=== PATIENT | female | born 1960 | race Caucasian/White ===

== ENCOUNTER → 2016-07-03 | Outpatient (CLI) | payer BC ==
[2016-07-03 11:47] LABS: HEMOGLOBIN 14.1 gm/dl (12.3-15.3); RED BLOOD COUNT 4.97 M/UL (4.00-5.10); WHITE BLOOD COUNT 7.4 K/UL (4.5-11.0)
[2016-07-03 12:11] LABS: BUN/CREATININE RATIO 13 (0-10)
== END ==
LOC: LAB 10:47
PROVIDERS: Internal Medicine
DX: E66.9 Obesity, unspecified (principal); M25.40 Effusion, unspecified joint; M25.50 Pain in unspecified joint; Z86.010 Personal history of colon polyps
CPT/HCPCS: 36415; 80048; 80061; 83001; 83002; 84439; 84443; 85025; 86376

== ENCOUNTER → 2016-07-21 | Outpatient (CLI) | payer BC | LOC: KOH-I 16:01 | DX: M25.562 Pain in left knee (principal); M25.561 Pain in right knee; M25.462 Effusion, left knee; M25.461 Effusion, right knee | CPT/HCPCS: 73564 ==

== ENCOUNTER → 2021-11-05 | Outpatient (CLI) | payer BC, OTHER ==
[~2021-11-05] MED LIST: HYDROXYZINE HCL25 MG PO; LISINOPRIL-HCT1 EACH PO; TYLENOL EXTRA500 MG PO
[2021-11-05 11:08] LABS: HEMOGLOBIN 12.9 gm/dl (12.3-15.3); RED BLOOD COUNT 4.71 M/UL (4.00-5.10); WHITE BLOOD COUNT 8.8 K/UL (4.5-11.0)
[2021-11-05 11:37] LABS: BUN/CREATININE RATIO 22 (0-10)
== END ==
LOC: EDSTATUS 10:00 → OPSV2 10:00
PROVIDERS: Orthopaedic Surgery
DX: Z01.818 Encounter for other preprocedural examination (principal); M17.11 Unilateral primary osteoarthritis, right knee
CPT/HCPCS: 36415; 80048; 85027; 93005

== ENCOUNTER → 2021-11-25 | Outpatient (CLI) | payer OTHER ==
[~2021-11-25] MED LIST changes: +AMRIX15 MG PO; +CELECOXIB200 MG PO; +ELIQUIS2.5 MG PO; +HYDROCODON-ACE473 ML PO; +ZOFRAN 4 MG TAB4 MG PO
[2021-11-25 14:02] LABS: BUN/CREATININE RATIO 19 (0-10)
== END ==
LOC: LAB 12:31
PROVIDERS: Orthopaedic Surgery
DX: Z01.812 Encounter for preprocedural laboratory examination (principal); M16.11 Unilateral primary osteoarthritis, right hip
CPT/HCPCS: 80048; 86850; 86900; 86901

== ENCOUNTER 2021-11-26 05:29 | Day surgery (SDC) | payer BC, OTHER ==
[~2021-11-26] VITALS: Ht 175.3 cm; Wt 105.7 kg
[~2021-11-26 05:29] MED LIST changes: -AMRIX15 MG PO; -CELECOXIB200 MG PO; -ELIQUIS2.5 MG PO; -HYDROCODON-ACE473 ML PO; -ZOFRAN 4 MG TAB4 MG PO
[2021-11-26] MEDS ORDERED: HYDROCODON-ACE473 ML PO (05:46)
[2021-11-26] MEDS ORDERED: AMRIX15 MG PO (05:48)
[2021-11-26] MEDS ORDERED: ELIQUIS2.5 MG PO (05:48)
[2021-11-26] MEDS ORDERED: ZOFRAN 4 MG TAB4 MG PO (05:48)
[2021-11-26] MEDS ORDERED: CELECOXIB200 MG PO (17:49)
[2021-11-27 05:12] LABS: RED BLOOD COUNT 3.36 M/UL (4.00-5.10); WHITE BLOOD COUNT 16.7 K/UL (4.5-11.0)
[2021-11-27 06:01] LABS: BUN/CREATININE RATIO 21 (0-10)
== END 2021-11-27 11:18 | disposition home or self-care (01) ==
LOC: OR 05:29 → M/S 13:21 → OR 11-27 11:18
PROVIDERS: Orthopaedic Surgery
DX: M17.11 Unilateral primary osteoarthritis, right knee (principal); G89.18 Other acute postprocedural pain; I10 Essential (primary) hypertension; Z79.899 Other long term (current) drug therapy; Z88.5 Allergy status to narcotic agent
CPT/HCPCS: 73560; 80048; 85027; 97116; 97116-GP-CQ; 97161; 97166; 97530-GP-CQ; 97535; C1713; C1776; J0592; J0690; J1100; J1170; J1200; J1885; J2250; J2274; J2405; J2704; J2710; J2795; J3010; J3370; J3475